=== PATIENT | male | born 2000 | race American Indian/Alaskan Native ===

== ENCOUNTER 2020-07-29 00:12 | Emergency (ER) | payer SELFPAY ==
--- NOTE | 2020-07-29 00:35 | Emergency Department Report ---
ED General Adult HPI - General Stated complaint: FACE PAIN X 1 WK - History of Present Illness Initial comments: Patient is a 19-year-old -[place] male with past medical history of eczema who presents to the ED with complaint of acute onset persistent painful right mandibular premolar toothache with swollen gums and right maxillary and frontal sinus pain and headache for the last 1 week. Patient states that he has been using [id number] medications with no relief. Patient states that in the last 2 days, the symptoms have worsened such that he has not been able to sleep or eat because of pain. Patient denies dizziness, syncope, nasal and sinus congestion, chest pain, shortness of breath, sore throat, traumatic injury, fever, chills, cough, change in vision, neck pain, nausea and vomiting or diarrhea and abdominal pain. MD Complaint: right mandibular pain, frontal and maxillary headache -: Sudden, week(s) (1) Location: head, face, mouth Radiation: non-radiation Severity scale (0 -10): 8 Quality: aching, sharp Consistency: constant Improves with: none Worsens with: eating Associated Symptoms: denies other symptoms, headaches, loss of appetite. denies: confusion, chest pain, cough, diaphoresis, fever/chills, malaise, nausea/vomiting, rash, seizure, shortness of breath, syncope, weakness Treatments Prior to Arrival: none - Related Data Previous Rx's Medication Instructions Recorded Last Taken Type Clindamycin [Clindamycin CAP] 150 mg PO Q8HR #60 capsule 07/29/20 Unknown Rx Ibuprofen [Motrin] 800 mg PO Q8HR PRN #30 tablet 07/29/20 Unknown Rx traMADoL [Ultram] 50 mg PO Q6HR PRN #12 tablet 07/29/20 Unknown Rx ED Review of Systems ROS: Stated complaint: FACE PAIN X 1 WK Other details as noted in HPI Constitutional: denies: chills, fever Eyes: denies: eye pain, eye discharge, vision change ENT: dental pain (right mandibular premolar and molar toothache; painful swollen gums), other (Painful right maxillary and frontal sinuses with pressure). denies: ear pain, throat pain Respiratory: denies: cough, shortness of breath, wheezing Cardiovascular: denies: chest pain, palpitations Endocrine: no symptoms reported Gastrointestinal: denies: abdominal pain, nausea, diarrhea Genitourinary: denies: urgency, dysuria Musculoskeletal: denies: back pain, joint swelling, arthralgia Skin: denies: rash, lesions Neurological: headache. denies: weakness, paresthesias Psychiatric: denies: anxiety, depression Hematological/Lymphatic: denies: easy bleeding, easy bruising ED Past Medical Hx - Medications Home Medications: Home Medications Medication Instructions Recorded Confirmed Last Taken Type Clindamycin [Clindamycin CAP] 150 mg PO Q8HR #60 capsule 07/29/20 Unknown Rx Ibuprofen [Motrin] 800 mg PO Q8HR PRN #30 tablet 07/29/20 Unknown Rx traMADoL [Ultram] 50 mg PO Q6HR PRN #12 tablet 07/29/20 Unknown Rx ED Physical Exam - General General appearance: alert, in no apparent distress - Head Head exam: Present: atraumatic, normocephalic, normal inspection - Eye Eye exam: Present: normal appearance, PERRL, EOMI Pupils: Present: normal accommodation - ENT ENT exam: Present: normal exam, mucous membranes moist, TM's normal bilaterally, normal external ear exam, other (Palpable right mandibular premolar and molar teeth tenderness; swollen, severely tender right mandibular gingiva; palpable right maxillary and frontal sinus tenderness) - Neck Neck exam: Present: normal inspection, full ROM. Absent: tenderness, lymphadenopathy - Respiratory Respiratory exam: Present: normal lung sounds bilaterally. Absent: respiratory distress, wheezes, rales, rhonchi, chest wall tenderness, accessory muscle use, decreased breath sounds, other - Cardiovascular Cardiovascular Exam: Present: regular rate, normal rhythm, normal heart sounds. Absent: systolic murmur, diastolic murmur, rubs, gallop - GI/Abdominal GI/Abdominal exam: Present: soft, normal bowel sounds. Absent: tenderness, guarding, rebound, hyperactive bowel sounds, hypoactive bowel sounds, organomegaly - Extremities Exam Extremities exam: Present: normal inspection, full ROM, normal capillary refill - Back Exam Back exam: Present: normal inspection, full ROM. Absent: tenderness, CVA tenderness (R), CVA tenderness (L), muscle spasm, paraspinal tenderness - Neurological Exam Neurological exam: Present: alert, oriented X3, CN II-XII intact, normal gait, reflexes normal - Psychiatric Psychiatric exam: Present: normal affect, normal mood - Skin Skin exam: Present: warm, dry, intact, normal color. Absent: rash ED Medical Decision Making - Medical Decision Making This is a 19-year-old -[place] male with past medical history of eczema who presents to the ED with complaint of acute onset persistent painful right mandibular premolar toothache with swollen gums and right maxillary and frontal sinus pain and headache for the last 1 week. Patient states that he has been using [id number] medications with no relief. Patient states that in the last 2 days, the symptoms have worsened such that he has not been able to sleep or eat because of pain. In the ED, patient is alert and oriented x3 and is not in any distress with normal vital signs. Patient was discharged home on medications for pain and also antibiotics for suspected dental abscess and sinusitis. Patient was advised to follow-up with his dentist in 7 to 10 days for reevaluation or return to the ED immediately if symptoms get worse. - Differential Diagnosis Dental abscess; sinusitis; gingivitis; dental caries Critical care attestation.: If time is entered above; I have spent that time in minutes in the direct care of this critically ill patient, excluding procedure time. ED Disposition Clinical Impression: Acute gingivitis, Dental abscess, Acute non-recurrent maxillary sinusitis, Dental caries Disposition: TO HOME OR SELFCARE Is pt being admited?: No Does the pt Need Aspirin: No Condition: Stable Instructions: Sinusitis, Adult, [id number], Dental Abscess, [id number], Trench Mouth Additional Instructions: Take medication with food, drink plenty of fluids and follow-up with your primary care physician or dentist in 7 to 10 days for reevaluation. Return to the ED immediately if symptoms get worse. Prescriptions: Clindamycin [Clindamycin CAP] 150 mg PO Q8HR #60 capsule Ibuprofen [Motrin] 800 mg PO Q8HR PRN #30 tablet PRN Reason: Pain , Severe (7-10) traMADoL [Ultram] 50 mg PO Q6HR PRN #12 tablet PRN Reason: Pain Referrals: [facility] [Outside] - 3-5 Days Time of Disposition: 00:37 Print Language: ALBAN[place]
[2020-07-29 00:37] VITALS: BP 136/75
== END 2020-07-29 00:59 | disposition home or self-care (01) ==
LOC: ED 00:12
DX: K02.9 Dental caries, unspecified (principal); J01.00 Acute maxillary sinusitis, unspecified; K04.7 Periapical abscess without sinus; K05.00 Acute gingivitis, plaque induced; Z79.899 Other long term (current) drug therapy
CPT/HCPCS: 99282